=== PATIENT | female | born 1960 | race Caucasian/White ===

== ENCOUNTER 2018-08-28 06:54 | Emergency (ER) | payer OTHER ==
[~2018-08-28] VITALS: Wt 57.0 kg
[2018-08-28 06:57] VITALS: BP 127/70; PULSE 78; RESP 18
[2018-08-28] MEDS ORDERED: traMADol 50 MG TAB PO ONE (08:00)
[2018-08-28] MEDS ORDERED: IBUP-1542 PO (09:36)
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
== END 2018-08-28 09:52 | disposition home or self-care (01) ==
LOC: FTE 06:54
DX: S52.502A Unspecified fracture of the lower end of left radius, initial encounter for closed fracture (principal); S89.92XA Unspecified injury of left lower leg, initial encounter; J45.909 Unspecified asthma, uncomplicated; I10 Essential (primary) hypertension; I50.9 Heart failure, unspecified; E11.9 Type 2 diabetes mellitus without complications; S09.90XA Unspecified injury of head, initial encounter; Y04.2XXA Assault by strike against or bumped into by another person, initial encounter
CPT/HCPCS: 29125; 70450; 73090; 73130; 73562; Z7502; Z7610

== ENCOUNTER 2018-09-11 16:26 | Emergency (ER) | payer OTHER ==
[~2018-09-11] VITALS: Ht 157.5 cm; Wt 48.0 kg
[~2018-09-11 16:26] MED LIST: IBUP-1542 PO
[2018-09-11 16:29] VITALS: Ht 157.5 cm; Wt 48.0 kg
--- NOTE | 2018-09-11 19:57 | ERD ---
ER Documentation Chief Complaint Chief Complaint pt is bib self "needs new splint to left arm" HPI 58-year-old female, recently evaluated here in the ED for a left radial fracture, presents to the emergency department, requesting a new splint. The patient reports that she has an appointment with her orthopedic surgeon in 1 week. She denies distal weakness, numbness or tingling. The pain is 2 out of 10. ROS All systems reviewed and are negative except as per history of present illness. Medications Home Meds Active Scripts Tramadol HCl (Tramadol HCl) 50 Mg Tablet, 50 MG PO Q6 PRN for PAIN, #12 TAB Prov:TORI RODRIGUEZ MD 09/11/18 Ibuprofen* (Motrin*) 600 Mg Tab, 600 MG PO Q6, #30 TAB Prov:JOSE GUERRERO PA-C 08/28/18 Allergies Allergies: Coded Allergies: acetaminophen (Verified Allergy, Unknown, 08/28/18) PMhx/Soc History of Surgery: Yes (Appendectomy) Anesthesia Reaction: No Hx Respiratory Disorders: Yes (Asthma) Hx Cardiac Disorders: Yes (CHF,HTN,DM,hyperlipidemia) Hx Alcohol Use: No Hx Substance Use: No Hx Tobacco Use: No Smoking Status: Never smoker FmHx Family History: No diabetes, No coronary disease Physical Exam Vitals Vital Signs Date Temp Pulse Resp B/P (MAP) Pulse Ox O2 O2 Flow FiO2 Time Delivery Rate 09/11/18 98.9 58 20 114/76 99 Room Air 21:07 (89) 09/11/18 98.3 110 20 129/78 98 16:29 (95) Physical Exam Const: No acute distress Head: Atraumatic Eyes: Normal Conjunctiva ENT: Normal External Ears, Nose and Mouth. Neck: Full range of motion. No meningismus. Resp: Clear to auscultation bilaterally Cardio: Regular rate and rhythm, no murmurs Abd: Soft, non tender, non distended. Normal bowel sounds Skin: No petechiae or rashes Back: No midline or flank tenderness Ext: Left forearm splint in place,no cyanosis, or edema Neur: Awake and alert Psych: Normal Mood and Affect Procedures/MDM Differential diagnosis considered include but not limited are: sprain/strain, ligament injury, fracture, dislocation, low suspicion for acute infectious process. Soft compartments, neurovascular exam grossly intact. Physical examination and clinical presentation consistent with left radial fracture. During the ED course the patient received treatment with left sugar tong splint presenting overall improvement of the symptoms. Splint evaluation: Type: Sugar tong Location: Left upper extremity Position: good alignment in anatomical position Neurovascular intact Results and clinical impression discussed with the patient who agrees with management. The patient is stable to be treated outpatient and will be discharg ed home with recommendations for Ortho evaluation GRACE, meanwhile, ice, rest and partial immobilization. NSAIDs 3 times daily for 5 days and close monitoring. The patient was instructed to follow up with the primary care provider in the next 48h. If symptoms persist, worsen or new symptoms develop, then patient should return to the ED immediately. Instructions explained and given to patient with acknowledgment and demonstrated understanding. Disclaimer: Inadvertent spelling and grammatical errors are likely due to EHR/dictation software use and do not reflect on the overall quality of patient care. Also, please note that the electronic time recorded on this note does not necessarily reflect the actual time of the patient encounter. Departure Diagnosis: Primary Impression: Left radial fracture Encounter type: subsequent encounter Fracture type: closed Fracture alignment: nondisplaced Fracture healing: with routine healing Condition: Stable Additional Instructions: Thank you very much for allowing us to participate in your care. Your health and safety is our top priority at [facility]. The evaluation in the emergency department has been done to rule out an acute emergency, therefore, chronic conditions like malignancy or other diseases have not been evaluated; therefore, you need to follow up with a primary care provider in the next 48h. If symptoms persist, worsen or new symptoms develop, then patient should return to the ED immediately. Call your primary care doctor TOMORROW for an appointment during the next 2-4 days and bring all the information provided. Have prescriptions filled and follow precisely the directions on the label. If the symptoms get worse and your provider is unavailable, return to the Emergency Department immediately. TORI RODRIGUEZ MD September 11, 2018 19:57
[2018-09-11] MEDS ORDERED: TRAM50TA2 PO (20:56)
[2018-09-11 21:07] VITALS: BP 114/76; PULSE 58; RESP 20
== END 2018-09-11 21:08 | disposition home or self-care (01) ==
LOC: FTE 16:26
DX: S52.92XA Unspecified fracture of left forearm, initial encounter for closed fracture (principal); I11.0 Hypertensive heart disease with heart failure; I50.9 Heart failure, unspecified; E11.9 Type 2 diabetes mellitus without complications; J45.909 Unspecified asthma, uncomplicated; X58.XXXA Exposure to other specified factors, initial encounter; Y92.9 Unspecified place or not applicable
CPT/HCPCS: 29125; Z7502

== ENCOUNTER 2019-01-10 10:00 | Inpatient (IN) | payer OTHER ==
[~2019-01-10] VITALS: Ht 157.5 cm; Wt 75.0 kg
[~2019-01-10 10:00] MED LIST changes: +AMOX1TAB10 PO; +ASPI81TA52 PO; +ATOR20TA38 PO; +BENA10TA6 PO; +BUME1TAB3 PO; +CARV3.1260 PO; +CARV6.2579 PO; +FURO40TA4 PO; +MEX150 PO; +NICO2GUM7 BUCCAL; +PANT40TA3 PO; +SERT50TA6 PO; +SPIR25TA PO; +SUCR1TAB56 PO; +TRAM50TA2 PO
[2019-01-10] MEDS ORDERED: FUROSEMIDE 40 MG INJ IV STA (10:05)
[2019-01-10] MEDS ORDERED: ASPIRIN 81 MG TAB PO STA (10:05)
[2019-01-10] MEDS ORDERED: NITROGLYCERIN 2% 1 GM OINT PKT TD STA (10:05)
[2019-01-10 10:19] VITALS: Ht 157.5 cm; Wt 75.0 kg
[2019-01-10] MEDS ORDERED: LORAZEPAM 2 MG INJ IV ONE (12:00)
[2019-01-10] MEDS ORDERED: DEXAMETHASONE 10 MG/ML 1 ML INJ IV STA (12:50)
[2019-01-10] MEDS ORDERED: ALBUTEROL 0.5% (NEB) 2.5 MG/0.5 ML AMP INH STA (12:50)
[2019-01-10] MEDS ORDERED: NITROGLYCERIN (SL) 0.4 MG TAB SL PRN (14:00)
[2019-01-10] MEDS ORDERED: HYDROCODONE/APAP (5/325) TAB PO PRN (14:00)
[2019-01-10] MEDS ORDERED: NACL 0.9% 3 ML SYG IV SCH (14:00)
[2019-01-10] MEDS ORDERED: hydrALAzine 20 MG INJ IV PRN (14:00)
[2019-01-10] MEDS ORDERED: ACETAMINOPHEN 325 MG TAB PO PRN (14:00)
[2019-01-10] MEDS ORDERED: MAGNESIUM HYDROXIDE 30ML CUP PO PRN (14:00)
[2019-01-10] MEDS ORDERED: LORAZEPAM 2 MG INJ IV PRN (14:00)
[2019-01-10] MEDS ORDERED: GLUCOSE GEL 15 GRAM TUBE PO PRN ×2 (14:30)
[2019-01-10] MEDS ORDERED: GLUCAGON 1 MG INJ IM PRN (14:30)
[2019-01-10] MEDS ORDERED: DEXTROSE 50% 50 ML SYRINGE IV PRN ×2 (14:30)
[2019-01-10] MEDS ORDERED: GLUCOSE GEL 15 GRAM TUBE BUCCAL PRN (14:30)
[2019-01-10] MEDS ORDERED: POTASSIUM CHLORIDE 100 ML IVPB ONE (16:00)
[2019-01-10] MEDS: SUCRALFATE 1 GM TAB PO SCH ×2 (17:30→21:00)
[2019-01-10] MEDS: INSULIN ASPART [NOVOLOG] 3 ML PEN SC SCH ×2 (18:00→21:00)
[2019-01-10] MEDS: FUROSEMIDE 40 MG INJ IV SCH (18:09)
[2019-01-10] MEDS: ALBUTEROL/IPRATROPIUM (NEB) 3 ML AMP HHN SCH (20:01)
[2019-01-10] MEDS: ATORVASTATIN 20 MG TAB PO SCH (20:48)
[2019-01-11] MEDS: FUROSEMIDE 40 MG INJ IV SCH ×3 (01:00→18:03)
[2019-01-11] MEDS: ACCU-CHEK XX SCH (02:00)
[2019-01-11] MEDS: ALBUTEROL/IPRATROPIUM (NEB) 3 ML AMP HHN SCH ×6 (02:26→20:23)
[2019-01-11] MEDS: INSULIN ASPART [NOVOLOG] 3 ML PEN SC SCH ×6 (03:37→21:33)
[2019-01-11] MEDS: SUCRALFATE 1 GM TAB PO SCH ×4 (07:00→20:49)
[2019-01-11] MEDS: PANTOPRAZOLE 40 MG INJ IV SCH (08:55)
[2019-01-11] MEDS: ASPIRIN 81 MG TAB PO SCH (08:58)
[2019-01-11] MEDS ORDERED: MAGNESIUM SULFATE 2 GM/50 ML 50 ML IVPB ONE (10:30)
[2019-01-11] MEDS: LEVOFLOXACIN 750MG/D5W (PMX) 150 ML IVPB SCH (10:35)
[2019-01-11] MEDS ORDERED: SOD CHLORIDE 0.9% 100 ML ONE (10:38)
[2019-01-11] MEDS ORDERED: IOHEXOL 350MG/ML 50 ML BTL ONE ×2 (10:38)
[2019-01-11 15:35] VITALS: BP 133/79; PULSE 93; RESP 18
[2019-01-11 20:01] VITALS: BP 111/69; PULSE 101; RESP 18
[2019-01-11] MEDS: morphine 2 MG INJ IV PRN (20:10)
[2019-01-11] MEDS: ATORVASTATIN 20 MG TAB PO SCH (20:49)
[2019-01-12 00:34] VITALS: BP 128/85; PULSE 96; RESP 20
[2019-01-12] MEDS: morphine 2 MG INJ IV PRN (00:39)
[2019-01-12] MEDS: FUROSEMIDE 40 MG INJ IV SCH ×3 (00:40→18:05)
[2019-01-12] MEDS: ALBUTEROL/IPRATROPIUM (NEB) 3 ML AMP HHN SCH ×6 (01:50→20:37)
[2019-01-12] MEDS: ACCU-CHEK XX SCH (02:00)
[2019-01-12] MEDS: INSULIN ASPART [NOVOLOG] 3 ML PEN SC SCH ×6 (02:11→20:33)
[2019-01-12 04:00] VITALS: BP 121/78; PULSE 98; RESP 18
[2019-01-12] MEDS: PANTOPRAZOLE 40 MG INJ IV SCH (06:12)
[2019-01-12] MEDS: SUCRALFATE 1 GM TAB PO SCH ×4 (07:41→20:34)
[2019-01-12 07:43] VITALS: BP 126/77; PULSE 96; RESP 16
[2019-01-12] MEDS: ASPIRIN 81 MG TAB PO SCH (08:33)
[2019-01-12] MEDS ORDERED: POTASSIUM CHLORIDE (SR) 20 MEQ TAB PO STA (10:29)
[2019-01-12 11:42] VITALS: BP 124/93; PULSE 95; RESP 18
[2019-01-12 18:08] VITALS: BP 143/82; PULSE 99; RESP 16
[2019-01-12 20:00] VITALS: BP 106/85; PULSE 100; RESP 18
[2019-01-12] MEDS: ATORVASTATIN 20 MG TAB PO SCH (20:34)
[2019-01-13] VITALS: BP 114/85; PULSE 96; RESP 18
[2019-01-13] MEDS: morphine 2 MG INJ IV PRN ×3 (01:12→22:48)
[2019-01-13] MEDS: FUROSEMIDE 40 MG INJ IV SCH ×3 (01:12→17:10)
[2019-01-13] MEDS: ALBUTEROL/IPRATROPIUM (NEB) 3 ML AMP HHN SCH ×3 (01:54→07:56)
[2019-01-13] MEDS: ACCU-CHEK XX SCH (02:00)
[2019-01-13 04:00] VITALS: BP 117/76; PULSE 76; RESP 19
[2019-01-13] MEDS: PANTOPRAZOLE 40 MG INJ IV SCH (05:35)
[2019-01-13] MEDS: INSULIN ASPART [NOVOLOG] 3 ML PEN SC SCH ×4 (07:25→20:47)
[2019-01-13] MEDS: SUCRALFATE 1 GM TAB PO SCH ×4 (07:49→20:46)
[2019-01-13 08:02] VITALS: BP 111/76; PULSE 94; RESP 19
[2019-01-13] MEDS: ASPIRIN 81 MG TAB PO SCH (08:19)
[2019-01-13] MEDS: LEVOFLOXACIN 750MG/D5W (PMX) 150 ML IVPB SCH (08:28)
[2019-01-13 11:21] VITALS: BP 110/81; PULSE 88; RESP 19
[2019-01-13 16:01] VITALS: BP 108/72; PULSE 85; RESP 18
[2019-01-13 19:50] VITALS: BP 120/68; PULSE 93; RESP 17
[2019-01-13] MEDS: ATORVASTATIN 20 MG TAB PO SCH (20:46)
[2019-01-14] VITALS: BP 127/59; PULSE 88; RESP 17
[2019-01-14] MEDS: FUROSEMIDE 40 MG INJ IV SCH ×3 (01:05→21:00)
[2019-01-14] MEDS: ACCU-CHEK XX SCH (01:46)
[2019-01-14 04:25] VITALS: BP 122/62; PULSE 71; RESP 17
[2019-01-14] MEDS: PANTOPRAZOLE 40 MG INJ IV SCH (05:56)
[2019-01-14] MEDS: INSULIN ASPART [NOVOLOG] 3 ML PEN SC SCH ×4 (07:25→21:00)
[2019-01-14 07:26] VITALS: BP 97/73; PULSE 65; RESP 18
[2019-01-14] MEDS: SUCRALFATE 1 GM TAB PO SCH ×4 (08:01→21:00)
[2019-01-14] MEDS ORDERED: POTASSIUM CHLORIDE (SR) 20 MEQ TAB PO STA (08:26)
[2019-01-14] MEDS: SERTRALINE 50 MG TAB PO SCH (09:06)
[2019-01-14] MEDS: ASPIRIN 81 MG TAB PO SCH (09:06)
[2019-01-14] MEDS: DOCUSATE SODIUM 100 MG CAP PO PRN (09:15)
[2019-01-14 11:26] VITALS: BP 102/66; PULSE 69; RESP 17
[2019-01-14] MEDS ORDERED: POTASSIUM CHLORIDE 20 MEQ POWDER FOR ORAL SOLN PO ONE (13:30)
[2019-01-14 16:09] VITALS: PULSE 70; RESP 19
[2019-01-14] MEDS: ONDANSETRON 4 MG INJ IV PRN (16:53)
[2019-01-14] MEDS: morphine 2 MG INJ IV PRN (16:58)
[2019-01-14 20:00] VITALS: BP 96/69; PULSE 89; RESP 18
[2019-01-14] MEDS: ATORVASTATIN 20 MG TAB PO SCH (21:00)
[2019-01-15 00:06] VITALS: BP 104/71; PULSE 76; RESP 18
[2019-01-15] MEDS: morphine 2 MG INJ IV PRN (00:29)
[2019-01-15 02:00] VITALS: BP 95/63; PULSE 69; RESP 18
[2019-01-15] MEDS: ACCU-CHEK XX SCH (02:00)
[2019-01-15] MEDS: PANTOPRAZOLE 40 MG INJ IV SCH (06:33)
[2019-01-15] MEDS: SUCRALFATE 1 GM TAB PO SCH ×5 (07:05→21:05)
[2019-01-15 07:43] VITALS: BP 102/75; PULSE 68; RESP 16
[2019-01-15] MEDS: INSULIN ASPART [NOVOLOG] 3 ML PEN SC SCH ×4 (08:13→21:00)
[2019-01-15] MEDS: SERTRALINE 50 MG TAB PO SCH (08:14)
[2019-01-15] MEDS: ASPIRIN 81 MG TAB PO SCH (08:15)
[2019-01-15] MEDS: FUROSEMIDE 40 MG INJ IV SCH ×2 (08:15→17:31)
[2019-01-15] MEDS: SPIRONOLACTONE 25 MG TAB PO SCH (12:36)
[2019-01-15 14:25] VITALS: BP 103/76; PULSE 67; RESP 18
[2019-01-15] MEDS: ENOXAPARIN 40 MG/0.4 ML SYG SC SCH (15:49)
[2019-01-15 19:12] VITALS: BP 138/85; PULSE 97; RESP 15
[2019-01-15 20:00] VITALS: BP 98/68; RESP 17
[2019-01-15] MEDS: ATORVASTATIN 20 MG TAB PO SCH (21:05)
[2019-01-16 02:00] VITALS: BP 92/63; PULSE 67; RESP 19
[2019-01-16] MEDS: ACCU-CHEK XX SCH (02:00)
[2019-01-16] MEDS: morphine 2 MG INJ IV PRN ×3 (03:28→17:14)
[2019-01-16 05:52] VITALS: BP 110/80; PULSE 68
[2019-01-16] MEDS: PANTOPRAZOLE (EC) 40 MG TAB PO SCH ×2 (05:53→05:59)
[2019-01-16] MEDS: FUROSEMIDE 40 MG INJ IV SCH ×2 (05:53→17:08)
[2019-01-16] MEDS: INSULIN ASPART [NOVOLOG] 3 ML PEN SC SCH ×4 (07:05→20:22)
[2019-01-16] MEDS: SUCRALFATE 1 GM TAB PO SCH ×4 (07:05→20:27)
[2019-01-16 07:49] VITALS: BP 116/82; PULSE 76; RESP 17
[2019-01-16] MEDS: ENOXAPARIN 40 MG/0.4 ML SYG SC SCH (09:00)
[2019-01-16] MEDS: SERTRALINE 50 MG TAB PO SCH (09:24)
[2019-01-16] MEDS: ASPIRIN 81 MG TAB PO SCH (09:24)
[2019-01-16] MEDS: SPIRONOLACTONE 25 MG TAB PO SCH (09:24)
[2019-01-16 14:24] VITALS: BP 105/77; PULSE 68; RESP 17
[2019-01-16] MEDS: NICOTINE POLACRILEX 2 MG GUM BUCCAL PRN ×2 (17:10→20:23)
[2019-01-16 19:48] VITALS: BP 96/69; PULSE 68; RESP 17
[2019-01-16] MEDS: ATORVASTATIN 20 MG TAB PO SCH (20:20)
[2019-01-16] MEDS: BISMUTH SUBSALICYLATE 240 ML BTL PO PRN (20:23)
[2019-01-16] MEDS: DOCUSATE SODIUM 100 MG CAP PO PRN (20:27)
[2019-01-17 01:50] VITALS: BP 113/75; PULSE 71; RESP 18
[2019-01-17] MEDS: ACCU-CHEK XX SCH (02:00)
[2019-01-17] MEDS: NICOTINE POLACRILEX 2 MG GUM BUCCAL PRN ×3 (05:02→12:43)
[2019-01-17] MEDS: PANTOPRAZOLE (EC) 40 MG TAB PO SCH (05:11)
[2019-01-17] MEDS: morphine 2 MG INJ IV PRN ×2 (05:12→12:43)
[2019-01-17 07:26] VITALS: BP 111/79; PULSE 67; RESP 18
[2019-01-17] MEDS: INSULIN ASPART [NOVOLOG] 3 ML PEN SC SCH ×4 (08:20→20:34)
[2019-01-17] MEDS: SUCRALFATE 1 GM TAB PO SCH ×4 (08:20→20:35)
[2019-01-17] MEDS: ASPIRIN 81 MG TAB PO SCH (08:21)
[2019-01-17] MEDS: SPIRONOLACTONE 25 MG TAB PO SCH (08:21)
[2019-01-17] MEDS: BUMETANIDE 1 MG TAB PO SCH ×2 (08:22→16:56)
[2019-01-17] MEDS: SERTRALINE 50 MG TAB PO SCH (08:22)
[2019-01-17] MEDS: ENOXAPARIN 40 MG/0.4 ML SYG SC SCH (08:23)
[2019-01-17 14:02] VITALS: BP 87/60; PULSE 65; RESP 18
[2019-01-17 14:37] VITALS: BP 93/68; PULSE 60; RESP 18
[2019-01-17] MEDS: ATORVASTATIN 20 MG TAB PO SCH (20:34)
[2019-01-17 20:42] VITALS: BP 86/70; PULSE 58; RESP 18
[2019-01-18] MEDS: ACCU-CHEK XX SCH (02:00)
[2019-01-18 02:13] VITALS: BP 96/69; PULSE 56; RESP 18
[2019-01-18] MEDS: morphine 2 MG INJ IV PRN ×3 (04:15→14:36)
[2019-01-18] MEDS: SUCRALFATE 1 GM TAB PO SCH ×4 (06:21→20:09)
[2019-01-18] MEDS: PANTOPRAZOLE (EC) 40 MG TAB PO SCH (06:21)
[2019-01-18] MEDS: BUMETANIDE 1 MG TAB PO SCH ×2 (06:21→17:32)
[2019-01-18] MEDS: INSULIN ASPART [NOVOLOG] 3 ML PEN SC SCH ×4 (07:05→20:09)
[2019-01-18 08:11] VITALS: BP 98/70; PULSE 61; RESP 16
[2019-01-18] MEDS: SPIRONOLACTONE 25 MG TAB PO SCH (08:49)
[2019-01-18] MEDS: SERTRALINE 50 MG TAB PO SCH (08:49)
[2019-01-18] MEDS: ASPIRIN 81 MG TAB PO SCH (08:49)
[2019-01-18] MEDS: ENOXAPARIN 40 MG/0.4 ML SYG SC SCH (08:54)
[2019-01-18] MEDS: BISMUTH SUBSALICYLATE 240 ML BTL PO PRN (14:05)
[2019-01-18 14:47] VITALS: BP 99/61; PULSE 66; RESP 16
[2019-01-18 19:50] VITALS: BP 89/73; PULSE 64; RESP 17
[2019-01-18] MEDS: ATORVASTATIN 20 MG TAB PO SCH (20:07)
[2019-01-19 02:00] VITALS: BP 94/76; PULSE 68; RESP 17
[2019-01-19] MEDS: ACCU-CHEK XX SCH (02:00)
[2019-01-19] MEDS: PANTOPRAZOLE (EC) 40 MG TAB PO SCH (06:02)
[2019-01-19] MEDS: morphine 2 MG INJ IV PRN ×3 (06:03→17:10)
[2019-01-19] MEDS: BUMETANIDE 1 MG TAB PO SCH ×2 (06:03→17:10)
[2019-01-19] MEDS: DOCUSATE SODIUM 100 MG CAP PO PRN (06:11)
[2019-01-19] MEDS: SUCRALFATE 1 GM TAB PO SCH ×2 (06:14→12:13)
[2019-01-19] MEDS: INSULIN ASPART [NOVOLOG] 3 ML PEN SC SCH ×4 (07:05→21:00)
[2019-01-19 07:49] VITALS: BP 107/73; PULSE 54; RESP 16
[2019-01-19] MEDS: SERTRALINE 50 MG TAB PO SCH (08:30)
[2019-01-19] MEDS: SPIRONOLACTONE 25 MG TAB PO SCH (08:31)
[2019-01-19] MEDS: ASPIRIN 81 MG TAB PO SCH (08:31)
[2019-01-19] MEDS: ENOXAPARIN 40 MG/0.4 ML SYG SC SCH (08:32)
[2019-01-19] MEDS: NICOTINE POLACRILEX 2 MG GUM BUCCAL PRN (09:05)
[2019-01-19] MEDS: BISACODYL (EC) 5 MG TAB PO PRN (10:44)
[2019-01-19 14:11] VITALS: BP 103/75; PULSE 56; RESP 15
[2019-01-19] MEDS: SUCRALFATE (100 MG/ML) 10ML CUP PO SCH ×2 (17:10→20:59)
[2019-01-19 19:51] VITALS: BP 101/71; PULSE 60; RESP 18
[2019-01-19] MEDS: ATORVASTATIN 20 MG TAB PO SCH (20:59)
[2019-01-20] MEDS: morphine 2 MG INJ IV PRN ×3 (01:08→17:47)
[2019-01-20 01:41] VITALS: BP 110/82; PULSE 56; RESP 18
[2019-01-20] MEDS: ACCU-CHEK XX SCH (02:00)
[2019-01-20] MEDS: PANTOPRAZOLE (EC) 40 MG TAB PO SCH (05:06)
[2019-01-20] MEDS: BUMETANIDE 1 MG TAB PO SCH ×2 (05:06→17:47)
[2019-01-20] MEDS: INSULIN ASPART [NOVOLOG] 3 ML PEN SC SCH ×4 (07:05→21:00)
[2019-01-20 07:33] VITALS: BP 104/76; PULSE 56; RESP 17
[2019-01-20] MEDS: ENOXAPARIN 40 MG/0.4 ML SYG SC SCH (08:53)
[2019-01-20] MEDS: SERTRALINE 50 MG TAB PO SCH (08:53)
[2019-01-20] MEDS: SPIRONOLACTONE 25 MG TAB PO SCH (08:53)
[2019-01-20] MEDS: ASPIRIN 81 MG TAB PO SCH (08:53)
[2019-01-20] MEDS: SUCRALFATE (100 MG/ML) 10ML CUP PO SCH ×4 (08:53→21:26)
[2019-01-20] MEDS: BISACODYL (EC) 5 MG TAB PO PRN (09:38)
[2019-01-20 14:54] VITALS: BP 95/66; PULSE 56; RESP 17
[2019-01-20] MEDS: ONDANSETRON 4 MG INJ IV PRN (17:50)
[2019-01-20 19:59] VITALS: BP 112/79; PULSE 59; RESP 17
[2019-01-20] MEDS: BISMUTH SUBSALICYLATE 240 ML BTL PO PRN (20:01)
[2019-01-20] MEDS: ATORVASTATIN 20 MG TAB PO SCH (21:26)
[2019-01-21] MEDS: ACCU-CHEK XX SCH ×2 (01:03→20:26)
[2019-01-21 02:15] VITALS: BP 119/73; PULSE 63; RESP 18
[2019-01-21] MEDS: BISMUTH SUBSALICYLATE 240 ML BTL PO PRN ×2 (06:01→20:26)
[2019-01-21] MEDS: PANTOPRAZOLE (EC) 40 MG TAB PO SCH (06:01)
[2019-01-21] MEDS: BUMETANIDE 1 MG TAB PO SCH ×2 (06:01→17:10)
[2019-01-21] MEDS: INSULIN ASPART [NOVOLOG] 3 ML PEN SC SCH ×4 (07:05→20:20)
[2019-01-21 07:49] VITALS: BP 98/63; PULSE 55; RESP 18
[2019-01-21] MEDS: SUCRALFATE (100 MG/ML) 10ML CUP PO SCH ×4 (07:59→20:26)
[2019-01-21] MEDS: ASPIRIN 81 MG TAB PO SCH (08:01)
[2019-01-21] MEDS: SERTRALINE 50 MG TAB PO SCH (08:01)
[2019-01-21] MEDS: SPIRONOLACTONE 25 MG TAB PO SCH (08:01)
[2019-01-21] MEDS: ENOXAPARIN 40 MG/0.4 ML SYG SC SCH (08:02)
[2019-01-21] MEDS: morphine 2 MG INJ IV PRN (08:39)
[2019-01-21] MEDS: ONDANSETRON 4 MG INJ IV PRN (12:33)
[2019-01-21 14:31] VITALS: BP 93/52; PULSE 64; RESP 18
[2019-01-21] MEDS: NICOTINE POLACRILEX 2 MG GUM BUCCAL PRN ×2 (17:10→20:26)
[2019-01-21 20:04] VITALS: BP 99/63; PULSE 58; RESP 18
[2019-01-21] MEDS: ATORVASTATIN 20 MG TAB PO SCH (20:26)
[2019-01-22 01:38] VITALS: BP 101/68; PULSE 60; RESP 18
[2019-01-22] MEDS: BUMETANIDE 1 MG TAB PO SCH ×2 (05:29→17:05)
[2019-01-22] MEDS: PANTOPRAZOLE (EC) 40 MG TAB PO SCH (05:29)
[2019-01-22 07:50] VITALS: BP 112/74; PULSE 68; RESP 18
[2019-01-22] MEDS: SUCRALFATE (100 MG/ML) 10ML CUP PO SCH ×4 (07:59→20:58)
[2019-01-22] MEDS: NICOTINE POLACRILEX 2 MG GUM BUCCAL PRN ×2 (08:02→20:58)
[2019-01-22] MEDS: INSULIN ASPART [NOVOLOG] 3 ML PEN SC SCH ×4 (08:19→21:00)
[2019-01-22] MEDS: SPIRONOLACTONE 25 MG TAB PO SCH (08:20)
[2019-01-22] MEDS: SERTRALINE 50 MG TAB PO SCH (08:20)
[2019-01-22] MEDS: ASPIRIN 81 MG TAB PO SCH (08:20)
[2019-01-22] MEDS: ENOXAPARIN 40 MG/0.4 ML SYG SC SCH (08:23)
[2019-01-22 14:00] VITALS: BP 96/54; PULSE 58; RESP 18
[2019-01-22 20:01] VITALS: BP 90/57; PULSE 55; RESP 18
[2019-01-22] MEDS: ATORVASTATIN 20 MG TAB PO SCH (20:58)
[2019-01-23 01:52] VITALS: BP 104/62; PULSE 58; RESP 18
[2019-01-23] MEDS: ACCU-CHEK XX SCH (02:00)
[2019-01-23] MEDS: BUMETANIDE 1 MG TAB PO SCH ×2 (05:29→17:11)
[2019-01-23] MEDS: PANTOPRAZOLE (EC) 40 MG TAB PO SCH (05:29)
[2019-01-23] MEDS: morphine 2 MG INJ IV PRN ×2 (05:30→17:58)
[2019-01-23] MEDS: INSULIN ASPART [NOVOLOG] 3 ML PEN SC SCH ×4 (07:05→20:16)
[2019-01-23 07:34] VITALS: BP 181/83; PULSE 56; RESP 15
[2019-01-23] MEDS: SUCRALFATE (100 MG/ML) 10ML CUP PO SCH ×4 (08:12→20:16)
[2019-01-23] MEDS: SPIRONOLACTONE 25 MG TAB PO SCH (08:16)
[2019-01-23] MEDS: SERTRALINE 50 MG TAB PO SCH (08:16)
[2019-01-23] MEDS: ASPIRIN 81 MG TAB PO SCH (08:17)
[2019-01-23] MEDS: NICOTINE POLACRILEX 2 MG GUM BUCCAL PRN ×4 (08:24→21:11)
[2019-01-23] MEDS: ENOXAPARIN 40 MG/0.4 ML SYG SC SCH (08:24)
[2019-01-23] MEDS: DOCUSATE SODIUM 100 MG CAP PO PRN (12:16)
[2019-01-23 13:35] VITALS: BP 106/62; PULSE 62; RESP 14
[2019-01-23 19:35] VITALS: BP 99/69; PULSE 59; RESP 17
[2019-01-23] MEDS: ATORVASTATIN 20 MG TAB PO SCH (20:17)
[2019-01-24] MEDS: morphine 2 MG INJ IV PRN ×2 (00:27→20:01)
[2019-01-24] MEDS: NICOTINE POLACRILEX 2 MG GUM BUCCAL PRN ×3 (00:27→19:59)
[2019-01-24] MEDS: ACCU-CHEK XX SCH (01:15)
[2019-01-24 02:00] VITALS: BP 106/71; PULSE 60; RESP 18
[2019-01-24 05:05] VITALS: BP 95/59; PULSE 56; RESP 18
[2019-01-24] MEDS: PANTOPRAZOLE (EC) 40 MG TAB PO SCH (05:12)
[2019-01-24] MEDS: BUMETANIDE 1 MG TAB PO SCH ×2 (05:12→17:21)
[2019-01-24] MEDS: INSULIN ASPART [NOVOLOG] 3 ML PEN SC SCH ×4 (07:05→20:05)
[2019-01-24 07:45] VITALS: BP 108/63; PULSE 60; RESP 16
[2019-01-24] MEDS: ASPIRIN 81 MG TAB PO SCH (08:25)
[2019-01-24] MEDS: SPIRONOLACTONE 25 MG TAB PO SCH (08:25)
[2019-01-24] MEDS: SERTRALINE 50 MG TAB PO SCH (08:26)
[2019-01-24] MEDS: SUCRALFATE (100 MG/ML) 10ML CUP PO SCH ×4 (08:26→20:05)
[2019-01-24] MEDS: ENOXAPARIN 40 MG/0.4 ML SYG SC SCH (08:29)
[2019-01-24 14:52] VITALS: BP 96/66; PULSE 60; RESP 16
[2019-01-24 19:50] VITALS: BP 99/66; PULSE 58; RESP 16
[2019-01-24] MEDS: ATORVASTATIN 20 MG TAB PO SCH (20:05)
[2019-01-25] MEDS: ACCU-CHEK XX SCH (02:00)
[2019-01-25 02:20] VITALS: BP 103/66; PULSE 62; RESP 16
[2019-01-25] MEDS: NICOTINE POLACRILEX 2 MG GUM BUCCAL PRN ×2 (02:24→17:26)
[2019-01-25] MEDS: morphine 2 MG INJ IV PRN ×3 (03:11→22:58)
[2019-01-25 05:04] VITALS: BP 92/56; PULSE 58
[2019-01-25] MEDS: BUMETANIDE 1 MG TAB PO SCH ×2 (05:08→17:19)
[2019-01-25] MEDS: PANTOPRAZOLE (EC) 40 MG TAB PO SCH (05:08)
[2019-01-25] MEDS: INSULIN ASPART [NOVOLOG] 3 ML PEN SC SCH ×4 (07:05→20:29)
[2019-01-25] MEDS: SUCRALFATE (100 MG/ML) 10ML CUP PO SCH ×4 (07:05→20:29)
[2019-01-25 07:27] VITALS: BP 94/60; PULSE 60; RESP 15
[2019-01-25] MEDS: SPIRONOLACTONE 25 MG TAB PO SCH (08:24)
[2019-01-25] MEDS: SERTRALINE 50 MG TAB PO SCH (08:24)
[2019-01-25] MEDS: ASPIRIN 81 MG TAB PO SCH (08:24)
[2019-01-25] MEDS: ENOXAPARIN 40 MG/0.4 ML SYG SC SCH (08:28)
[2019-01-25 14:55] VITALS: BP 129/83; PULSE 62; RESP 18
[2019-01-25 19:00] VITALS: BP 113/75; PULSE 60; RESP 17
[2019-01-25] MEDS: ATORVASTATIN 20 MG TAB PO SCH (20:26)
[2019-01-26] MEDS: ACCU-CHEK XX SCH (02:00)
[2019-01-26 02:28] VITALS: BP 99/60; PULSE 65; RESP 16
[2019-01-26] MEDS: PANTOPRAZOLE (EC) 40 MG TAB PO SCH (06:17)
[2019-01-26] MEDS: BUMETANIDE 1 MG TAB PO SCH ×2 (06:17→17:19)
[2019-01-26] MEDS: SUCRALFATE (100 MG/ML) 10ML CUP PO SCH ×4 (06:17→20:12)
[2019-01-26] MEDS: INSULIN ASPART [NOVOLOG] 3 ML PEN SC SCH ×4 (07:05→20:14)
[2019-01-26] MEDS: morphine 2 MG INJ IV PRN ×2 (08:13→18:05)
[2019-01-26] MEDS: SERTRALINE 50 MG TAB PO SCH (08:18)
[2019-01-26] MEDS: NICOTINE POLACRILEX 2 MG GUM BUCCAL PRN ×2 (08:18→18:04)
[2019-01-26] MEDS: ASPIRIN 81 MG TAB PO SCH (08:18)
[2019-01-26] MEDS: SPIRONOLACTONE 25 MG TAB PO SCH (08:18)
[2019-01-26 08:27] VITALS: BP 92/60; RESP 16
[2019-01-26] MEDS: ENOXAPARIN 40 MG/0.4 ML SYG SC SCH (08:46)
[2019-01-26 15:22] VITALS: BP 97/68; PULSE 60; RESP 18
[2019-01-26 19:00] VITALS: BP 86/51; PULSE 60; RESP 18
[2019-01-26] MEDS: BISMUTH SUBSALICYLATE 240 ML BTL PO PRN (20:09)
[2019-01-26] MEDS: ATORVASTATIN 20 MG TAB PO SCH (20:12)
[2019-01-26 20:20] VITALS: BP 90/51; PULSE 61
[2019-01-27 02:00] VITALS: BP 105/73; PULSE 65; RESP 18
[2019-01-27] MEDS: ACCU-CHEK XX SCH (02:00)
[2019-01-27] MEDS: BUMETANIDE 1 MG TAB PO SCH ×2 (05:40→17:25)
[2019-01-27] MEDS: PANTOPRAZOLE (EC) 40 MG TAB PO SCH (05:40)
[2019-01-27] MEDS: INSULIN ASPART [NOVOLOG] 3 ML PEN SC SCH ×4 (07:05→20:49)
[2019-01-27 08:00] VITALS: BP 86/58; PULSE 54; RESP 16
[2019-01-27] MEDS: SPIRONOLACTONE 25 MG TAB PO SCH ×2 (08:18→08:31)
[2019-01-27 08:19] VITALS: BP 100/59; PULSE 56; RESP 18
[2019-01-27] MEDS: SERTRALINE 50 MG TAB PO SCH (08:20)
[2019-01-27] MEDS: ASPIRIN 81 MG TAB PO SCH (08:20)
[2019-01-27] MEDS: SUCRALFATE (100 MG/ML) 10ML CUP PO SCH ×4 (08:22→20:49)
[2019-01-27] MEDS: ENOXAPARIN 40 MG/0.4 ML SYG SC SCH (08:27)
[2019-01-27 14:02] VITALS: BP_SYST 110; BP_SYST 86; BP_DIAS 59; BP_DIAS 77; PULSE 58; PULSE 65; RESP 16
[2019-01-27] MEDS: NICOTINE POLACRILEX 2 MG GUM BUCCAL PRN ×2 (16:12→18:25)
[2019-01-27] MEDS: morphine 2 MG INJ IV PRN (18:23)
[2019-01-27 20:40] VITALS: BP 98/60; PULSE 66; RESP 18
[2019-01-27] MEDS: ATORVASTATIN 20 MG TAB PO SCH (20:50)
[2019-01-28] MEDS: NICOTINE POLACRILEX 2 MG GUM BUCCAL PRN ×4 (00:33→13:56)
[2019-01-28 02:00] VITALS: BP 90/53; PULSE 62; RESP 18
[2019-01-28] MEDS: ACCU-CHEK XX SCH (02:00)
[2019-01-28] MEDS: PANTOPRAZOLE (EC) 40 MG TAB PO SCH (05:27)
[2019-01-28] MEDS: BUMETANIDE 1 MG TAB PO SCH ×2 (05:27→18:06)
[2019-01-28] MEDS: INSULIN ASPART [NOVOLOG] 3 ML PEN SC SCH ×3 (07:05→17:05)
[2019-01-28 07:57] VITALS: BP 96/55; PULSE 67; RESP 18
[2019-01-28] MEDS: SUCRALFATE (100 MG/ML) 10ML CUP PO SCH ×3 (09:03→17:54)
[2019-01-28] MEDS: SPIRONOLACTONE 25 MG TAB PO SCH (09:04)
[2019-01-28] MEDS: ASPIRIN 81 MG TAB PO SCH (09:04)
[2019-01-28] MEDS: SERTRALINE 50 MG TAB PO SCH (09:04)
[2019-01-28] MEDS: ENOXAPARIN 40 MG/0.4 ML SYG SC SCH (09:09)
[2019-01-28] MEDS ORDERED: IBUPROFEN 200 MG TAB PO ONE (13:30)
[2019-01-28] MEDS: morphine 2 MG INJ IV PRN (13:56)
[2019-01-28] MEDS ORDERED: IBUPROFEN 400 MG TAB PO ONE (14:00)
[2019-01-28 14:03] VITALS: BP 102/52; PULSE 57; RESP 18
== END 2019-01-28 19:30 | disposition other institution (70) | DRG 292 ==
LOC: E/R 10:00 → SUATTDRO 21:12 → TEL 01-11 13:54 → MS3 01-15 00:05
PROVIDERS: ADMIT Hospitalist; ATTEND Internal Medicine
PROC: 5A09357 Assistance with Respiratory Ventilation, Less than 24 Consecutive Hours, Continuous Positive Airway Pressure (ICD-10-PCS; principal; 2019-01-10)
PROC: 4A033R1 Measurement of Arterial Saturation, Peripheral, Percutaneous Approach (ICD-10-PCS; 2019-01-10)
DX: I11.0 Hypertensive heart disease with heart failure (principal); G93.40 Encephalopathy, unspecified; I50.23 Acute on chronic systolic (congestive) heart failure; J45.909 Unspecified asthma, uncomplicated; I42.0 Dilated cardiomyopathy; E11.9 Type 2 diabetes mellitus without complications; F17.200 Nicotine dependence, unspecified, uncomplicated; E78.00 Pure hypercholesterolemia, unspecified; I08.1 Rheumatic disorders of both mitral and tricuspid valves; Z59.0 Homelessness; D72.819 Decreased white blood cell count, unspecified; I27.20 Pulmonary hypertension, unspecified; F32.9 Major depressive disorder, single episode, unspecified; R10.13 Epigastric pain; Z79.82 Long term (current) use of aspirin
CPT/HCPCS: 36415; 36600; 70450; 71045; 71275; 78582; 80048; 80053; 80061; 80076; 80307; 82140; 82550; 82553; 82607; 82803; 82962; 83036; 83540; 83605; 83735; 83880; 84100; 84439; 84443; 84484; 85025; 85610; 85730; 86038; 86226; 86235; 86592; 86703; 92610; 93005; 93306; 94640; 94644; 94660; 94664; 96374; 96375; 97110; 97116; 97161; 97165; 97530; 97535; A9540; C9113; J0360; J1100; J1650; J1815; J1940; J1956; J2060; J2270; J2405; J3475; J3480; Q9967